=== PATIENT | male | born 1990 | race Caucasian/White ===

== ENCOUNTER 2017-07-04 00:03 | Emergency (ER) | payer SELFPAY ==
[2017-07-04 00:03] VITALS: BMI 28.2
[2017-07-04] MEDS ORDERED: MethylPREDNISolone 40 mg Vial IM STA (00:26)
[2017-07-04] MEDS ORDERED: Albuterol-Ipratrop 3 mg / 0.5 (3 ml) UD ONE (00:27)
[2017-07-04] MEDS: Albuterol-Ipratrop 3 mg / 0.5 (3 ml) UD IH SCH ×3 (00:28→00:52)
[2017-07-04] MEDS ORDERED: MethylPREDNISolone 40 mg Vial ONE (00:31)
--- NOTE | 2017-07-04 00:35 | C.PDOC ---
History Of Present Illness 27 year old male who presents to the ER with a complaint of cough, runny nose, sore throat, and pain with breathing since yesterday. Denies fever, travel, vomiting, diarrhea, or Hx of asthma. Time Seen by Provider: 07/04/17 00:15 Chief Complaint (Nursing): Cough, Cold, Congestion History Per: Patient History/Exam Limitations: no limitations Onset/Duration Of Symptoms: Days Current Symptoms Are (Timing): Still Present Location Of Pain: Throat Sick Contacts (Context): None Associated Symptoms: Sore Throat, Cough, Nasal Congestion. denies: Fever, Chills Recent travel outside of the [place]: No Past Medical History Reviewed: Historical Data, Nursing Documentation, Vital Signs Vital Signs: Last Vital Signs Temp 97.7 F 07/04/17 01:22 Pulse 95 H 07/04/17 01:22 Resp 20 07/04/17 01:22 BP 151/80 H 07/04/17 01:22 Pulse Ox 99 07/04/17 01:22 - Medical History PMH: No Chronic Diseases Surgical History: No Surg Hx - [facility] Procedures OTHER SKIN & SUBQ I D (02/09/14) Family History: States: Unknown Family Hx - Social History Hx Tobacco Use: Yes Hx Alcohol Use: No Hx Substance Use: No - Immunization History Hx Tetanus Toxoid Vaccination: No Hx Influenza Vaccination: No Review Of Systems Constitutional: Negative for: Fever, Chills ENT: Positive for: Nose Congestion, Throat Pain Respiratory: Positive for: Cough, Wheezing Gastrointestinal: Negative for: Nausea, Vomiting, Diarrhea Physical Exam - Physical Exam Appears: Non-toxic Skin: Normal Color, Warm, Dry Head: Atraumatic, Normacephalic Ear(s): Bilateral: Normal Oral Mucosa: Moist Throat: Normal, No Erythema, No Exudate Neck: Normal, Supple Chest: Symmetrical, No Tenderness Cardiovascular: Rhythm Regular, No Murmur Respiratory: No Rales, No Rhonchi, Wheezing (Moderate bilateral expiratory) Gastrointestinal/Abdominal: Soft, No Tenderness Neurological/Psych: Oriented x3, Normal Speech, Normal Cognition ED Course And Treatment O2 Sat by Pulse Oximetry: 97 (Room air) Pulse Ox Interpretation: Normal - Radiology CXR: Interpreted by Me CXR Interpretation: Yes: No Acute Disease. No: Infiltrates Medical Decision Making Medical Decision Making: Plan: * CXR * Solumedrol * Nebulizer treatment On re-exam, the patient reports improvement of symptoms. Lungs are CTA, pulse ox is 98% on RA. Heart is RRR. Abdomen is soft, non-tender and tolerating PO well. Ambulatory in the ED with steady gait. Disposition - Disposition Referrals: [facility] [Outside] Disposition: HOME/ ROUTINE Disposition Time: 01:07 Condition: GOOD Additional Instructions: follow up with the medical doctor/clinic within 1-2 days. Return if worsened, Prescriptions: Albuterol HFA [Ventolin HFA 90 mcg/actuation (8 g)] 1 puff IH Q6 PRN #1 inhaler PRN Reason: Wheezing Azithromycin [Zithromax] 250 mg PO DAILY #4 tab Benzonatate [Tessalon Perles] 100 mg PO TID PRN #21 sgl PRN Reason: Cough Ibuprofen [Motrin] 600 mg PO TID #21 tab predniSONE [Prednisone] 20 mg PO BID #10 tab Spacer, Inhalation [Aerochamber] 1 dev IH Q4 #1 dev Instructions: Acute Bronchitis (ED) Forms: Anywhere to Go ([place]) - Clinical Impression Clinical Impression: Bronchitis - Scribe Statement The provider has reviewed the documentation as recorded by the Scribe Maikol Guevara All medical record entries made by the Scribe were at my direction and personally dictated by me. I have reviewed the chart and agree that the record accurately reflects my personal performance of the history, physical exam, medical decision making, and the department course for this patient. I have also personally directed, reviewed, and agree with the discharge instructions and disposition.
[2017-07-04 01:24] VITALS: BP 151/80; PULSE 95; RESP 20; TEMP 97.7
[2017-07-04 05:23] VITALS: O2SAT 97
--- NOTE | 2017-07-04 08:08 | RAD ---
HISTORY: cough, wheezing, COMPARISON: No prior. TECHNIQUE: Chest PA and lateral FINDINGS: LUNGS: No active pulmonary disease. PLEURA: No significant pleural effusion identified. No pneumothorax apparent. CARDIOVASCULAR: Normal. OSSEOUS STRUCTURES: No significant abnormalities. VISUALIZED UPPER ABDOMEN: Normal. OTHER FINDINGS: None. IMPRESSION: No active disease.
== END 2017-07-04 01:24 | disposition home or self-care (01) ==
LOC: C.ER 00:03
DX: J40 Bronchitis, not specified as acute or chronic (principal); Z72.0 Tobacco use
CPT/HCPCS: 71020; 96372; 99283; J2920